=== PATIENT | female | born 1995 | race Caucasian/White ===

== ENCOUNTER 2018-04-26 17:43 | Emergency (ER) | payer MEDICAID ==
--- NOTE | 2018-04-26 18:27 | NUR ---
pt called at this time, told admitting that she was going to leave. er md notified.
== END 2018-04-26 18:26 | disposition left against medical advice (07) ==
LOC: MED 17:43
DX: Z53.21 Procedure and treatment not carried out due to patient leaving prior to being seen by health care provider (principal)

== ENCOUNTER 2022-08-29 09:56 | Emergency (ER) | payer BC, MEDICAID ==
[~2022-08-29] VITALS: Ht 165.1 cm; Wt 99.8 kg
[2022-08-29 10:07] VITALS: BP 98/60
--- NOTE | 2022-08-29 10:40 | NUR ---
. AT BEDSIDE ASSESSING PT
[2022-08-29] MEDS ORDERED: NITR100C7 PO (13:35)
[2022-08-29] MEDS ORDERED: NAPR-1704 PO (13:35)
[2022-08-29 13:42] VITALS: BP 100/62
--- NOTE | 2022-08-29 13:42 | NUR ---
Patient discharged with v/s stable. Written and verbal after care instructions given and explained. Patient alert, oriented and verbalized understanding of instructions. Ambulatory with steady gait. All questions addressed prior to discharge. ID band removed. Patient advised to follow up with PMD. Rx of NAPROSYN AMD MACROBID given. Patient educated on indication of medication including possible reaction and side effects. Opportunity to ask questions provided and answered.
[2022-08-29 16:28] LABS: APPEARANCE,URINE CLOUDY (CLEAR); BLOOD, URINE 3+ (NEGATIVE); COLOR,URINE AMBER (YELLOW); UGLUCOSE NEGATIVE (NEGATIVE)
[2022-08-29 16:29] LABS: BILIRUBIN,URINE NEGATIVE (NEGATIVE); LEUKOCYTE ESTERASE ,URINE 1+ (NEGATIVE); NITRITE, URINE NEGATIVE (NEGATIVE)
[2022-08-29 16:34] LABS: RBC,URINE 11-20 (MOD) /HPF (0-5)
== END 2022-08-29 13:42 | disposition home or self-care (01) ==
LOC: MED 09:56
DX: N39.0 Urinary tract infection, site not specified (principal); F12.90 Cannabis use, unspecified, uncomplicated; Z90.49 Acquired absence of other specified parts of digestive tract; Z79.899 Other long term (current) drug therapy; Z98.890 Other specified postprocedural states
CPT/HCPCS: 76830; 81001; 81025; 87086; 87491; 93976; 99284; Q0092